=== PATIENT | male | born 1955 | race Caucasian/White ===

== ENCOUNTER 2020-09-03 16:56 | Observation (INO) ==
[2020-09-03] MEDS ORDERED: Acetaminophen 325 MG TABLET PO PRN (20:56)
[2020-09-03] MEDS ORDERED: Ondansetron 4 MG/2 ML VIAL IVP PRN (20:56)
[2020-09-03] MEDS ORDERED: Naloxone 0.4 MG/ML INJ IVP PRN (20:56)
[2020-09-03] MEDS ORDERED: D5% in Water 1,000 ML IVC PRN (21:00)
[2020-09-03] MEDS ORDERED: Dextrose Gel 15 GM/37.5 ML TUBE PO PRN ×2 (21:00)
[2020-09-03] MEDS ORDERED: *HR* Dextrose 50 % in Water (Vial) 50 ML VIAL IVP PRN (21:00)
[2020-09-03] MEDS ORDERED: 0.9 % Sodium Chloride 1,000 ML IVC SCH (21:45)
[2020-09-03 22:18] LABS: Hematocrit 44.6 % (37.5-50.1); Hemoglobin 14.4 g/dL (12.9-16.9); Mean Corpuscular HGB Conc 32.3 g/dL (31.6-35.5); Mean Corpuscular Hemoglobin 27.5 pg (28.0-33.3); Mean Corpuscular Volume 85.3 fL (83.0-100.0); Mean Platelet Volume 9.4 fL (9.4-12.4); Platelet Count 292 K/mcL (140-400); Red Blood Count 5.23 M/mcL (4.19-5.50); Red Cell Distribution Width 13.6 % (11.5-14.5); White Blood Count 8.5 K/mcL (4.3-11.1)
[2020-09-03] MEDS: *HR* Heparin 5,000 UNIT/ML VIAL SQ SCH (22:20)
[2020-09-03] MEDS: cefTRIAXone 2,000 MG in Water for inj. (sterile) 20 ML IVP SCH (22:21)
[2020-09-03] MEDS: metroNIDAZOLE 500 MG TABLET PO SCH (22:22)
[2020-09-03 23:03] LABS: Alanine Aminotransferase 693 Units/L (7-52); Albumin 3.8 g/dL (3.5-5.7); Albumin/Globulin Ratio 1.2 (1.1-2.2); Alkaline Phosphatase 169 Units/L (34-104); Aspartate Amino Transferase 491 Units/L (13-39); BUN/Creatinine Ratio 19 (6-26); Bilirubin,Direct 1.4 mg/dL (0.0-0.2); Bilirubin,Indirect 1.2 mg/dL (0.0-1.0); Bilirubin,Total 2.6 mg/dL (0.3-1.0); Blood Urea Nitrogen 15 mg/dL (8-23); Calcium 8.8 mg/dL (8.6-10.3); Carbon Dioxide 26 mEq/L (23-29); Chloride 103 mEq/L (98-107); Globulin 3.2 g/dL (2.4-3.5); Glucose 113 mg/dL (70-105); Osmolality,Calculated 288 (280-300); Potassium 3.8 mEq/L (3.5-5.1); Sodium 138 mEq/L (136-145); eGFR For African Americans > 60 (> 60); eGFR For Non-African Americans > 60 (> 60)
[2020-09-04] MEDS: Insulin LISPRO 300 UNITS/3 ML VIAL SQ SCH ×2 (00:10→05:58)
[2020-09-04] MEDS: *HR* Heparin 5,000 UNIT/ML VIAL SQ SCH ×2 (04:52→19:23)
[2020-09-04 06:25] LABS: Hematocrit 45.1 % (37.5-50.1); Hemoglobin 14.5 g/dL (12.9-16.9); Mean Corpuscular HGB Conc 32.2 g/dL (31.6-35.5); Mean Corpuscular Hemoglobin 28.1 pg (28.0-33.3); Mean Corpuscular Volume 87.4 fL (83.0-100.0); Mean Platelet Volume 9.7 fL (9.4-12.4); Platelet Count 273 K/mcL (140-400); Red Blood Count 5.16 M/mcL (4.19-5.50); Red Cell Distribution Width 13.5 % (11.5-14.5); White Blood Count 7.8 K/mcL (4.3-11.1)
[2020-09-04 06:29] LABS: INR 1.1; Prothrombin Time 13.1 Seconds (9.4-12.1)
[2020-09-04 07:01] LABS: Alanine Aminotransferase 557 Units/L (7-52); Albumin 3.6 g/dL (3.5-5.7); Albumin/Globulin Ratio 1.2 (1.1-2.2); Alkaline Phosphatase 156 Units/L (34-104); Aspartate Amino Transferase 320 Units/L (13-39); BUN/Creatinine Ratio 19 (6-26); Bilirubin,Direct 1.5 mg/dL (0.0-0.2); Bilirubin,Indirect 0.9 mg/dL (0.0-1.0); Bilirubin,Total 2.4 mg/dL (0.3-1.0); Blood Urea Nitrogen 15 mg/dL (8-23); Calcium 8.9 mg/dL (8.6-10.3); Carbon Dioxide 26 mEq/L (23-29); Chloride 104 mEq/L (98-107); Glucose 114 mg/dL (70-105); Magnesium 2.1 mg/dL (1.6-2.6); Osmolality,Calculated 292 (280-300); Phosphorous 4.1 mg/dL (2.7-4.5); Potassium 3.8 mEq/L (3.5-5.1); Sodium 140 mEq/L (136-145); Total Protein 6.6 g/dL (6.4-8.9); eGFR For African Americans > 60 (> 60); eGFR For Non-African Americans > 60 (> 60)
[2020-09-04] MEDS: metroNIDAZOLE 500 MG TABLET PO SCH ×3 (08:24→21:00)
[2020-09-04] MEDS ORDERED: Aspirin 81 MG TAB.CHEW PO SCH (09:00)
[2020-09-04 10:12] LABS: Estimated Average Glucose 148 mg/dl
[2020-09-04] MEDS ORDERED: Lidocaine -MPF 4% 5 ML AMPUL ONE (12:05)
[2020-09-04] MEDS ORDERED: *HR* Propofol 200 MG/20 ML VIAL IVP ONE (12:06)
[2020-09-04] MEDS ORDERED: Lidocaine -MPF 2% 2 ML VIAL ONE (12:07)
[2020-09-04] MEDS ORDERED: *HR* Rocuronium Bromide 50 MG/5 ML VIAL ONE (12:07)
[2020-09-04] MEDS ORDERED: Ondansetron 4 MG/2 ML VIAL ONE (12:07)
[2020-09-04] MEDS ORDERED: Dexamethasone 4 MG/ML VIAL ONE (12:07)
[2020-09-04] MEDS ORDERED: *HR* FentaNYL (PF) 100 MCG/2 ML VIAL ONE (12:07)
[2020-09-04] MEDS ORDERED: *HR* Succinylcholine 200 MG/10 ML VIAL IVP ONE (12:07)
[2020-09-04] MEDS ORDERED: Ondansetron 4 MG/2 ML VIAL IVP PRN (14:04)
[2020-09-04] MEDS ORDERED: *HR* FentaNYL (PF) 100 MCG/2 ML VIAL IVP PRN (14:04)
[2020-09-04] MEDS ORDERED: Promethazine 6.25 MG in Water for inj. (sterile) 20 ML IVPB PRN (14:04)
[2020-09-04] MEDS ORDERED: Albuterol 2.5 MG/3 ML NEBULIZER IH PRN (14:04)
[2020-09-04] MEDS ORDERED: *HR* OxyCODONE Immed Rel 5 MG TABLET PO PRN (14:04)
[2020-09-04] MEDS ORDERED: *HR* PHENYLEPHRINE 1,000 MCG/10 ML SYRINGE IVP ONE (14:15)
[2020-09-04] MEDS ORDERED: Indomethacin 50 MG SUPP.RECT RC ONE (14:19)
[2020-09-04] MEDS ORDERED: EPHEDrine 50 MG/ML VIAL ONE (14:29)
[2020-09-04] MEDS ORDERED: *HR* Dextrose 50 % in Water (Vial) 50 ML VIAL IVP PRN (15:55)
[2020-09-04] MEDS ORDERED: D5% in Water 1,000 ML IVC PRN (15:55)
[2020-09-04] MEDS ORDERED: Dextrose Gel 15 GM/37.5 ML TUBE PO PRN ×2 (15:55)
[2020-09-04] MEDS: *HR* Metoprolol 5 MG/5 ML VIAL IVP PRN ×2 (16:13→16:32)
[2020-09-04] MEDS ORDERED: Insulin LISPRO 300 UNITS/3 ML VIAL SQ SCH ×2 (16:30→21:00)
[2020-09-04] MEDS ORDERED: Ringers Solution, Lactated 1,000 ML ONE (16:54)
[2020-09-04] MEDS: cefTRIAXone 2,000 MG in Water for inj. (sterile) 20 ML IVP SCH (21:00)
[2020-09-05] MEDS: *HR* Heparin 5,000 UNIT/ML VIAL SQ SCH (05:00)
[2020-09-05] MEDS ORDERED: *HR* Rocuronium Bromide 50 MG/5 ML VIAL ONE (07:21)
[2020-09-05] MEDS ORDERED: *HR* Propofol 200 MG/20 ML VIAL IVP ONE (07:21)
[2020-09-05] MEDS ORDERED: Dexamethasone 4 MG/ML VIAL ONE (07:21)
[2020-09-05] MEDS ORDERED: Lidocaine -MPF 4% 5 ML AMPUL ONE (07:21)
[2020-09-05] MEDS ORDERED: Lidocaine -MPF 2% 2 ML VIAL ONE (07:21)
[2020-09-05] MEDS ORDERED: *HR* FentaNYL (PF) 100 MCG/2 ML VIAL ONE (07:21)
[2020-09-05] MEDS ORDERED: Ondansetron 4 MG/2 ML VIAL ONE (07:21)
[2020-09-05] MEDS ORDERED: *HR* Succinylcholine 200 MG/10 ML VIAL IVP ONE (07:47)
[2020-09-05] MEDS ORDERED: *HR* PHENYLEPHRINE 1,000 MCG/10 ML SYRINGE IVP ONE (08:01)
[2020-09-05 09:43] VITALS: BP 146/76
[2020-09-05] MEDS ORDERED: *HR* Dextrose 50 % in Water (Vial) 50 ML VIAL IVP PRN (10:12)
[2020-09-05] MEDS ORDERED: Ondansetron 4 MG/2 ML VIAL IVP PRN (10:12)
[2020-09-05] MEDS ORDERED: *HR* OxyCODONE/APAP 5/325 TABLET PO PRN (10:12)
[2020-09-05] MEDS ORDERED: Naloxone 0.4 MG/ML INJ IVP PRN (10:12)
[2020-09-05] MEDS ORDERED: D5% in Water 1,000 ML IVC PRN (10:12)
[2020-09-05] MEDS ORDERED: Dextrose Gel 15 GM/37.5 ML TUBE PO PRN ×2 (10:12)
[2020-09-05] MEDS ORDERED: metroNIDAZOLE 500 MG TABLET PO SCH ×2 (10:30)
[2020-09-05] MEDS ORDERED: Insulin LISPRO 300 UNITS/3 ML VIAL SQ SCH ×2 (11:30→21:00)
[2020-09-05] MEDS ORDERED: *HR* Heparin 5,000 UNIT/ML VIAL SQ SCH (18:00)
[2020-09-05] MEDS ORDERED: cefTRIAXone 2,000 MG in Water for inj. (sterile) 20 ML IVP SCH (22:00)
== END 2020-09-05 14:25 | disposition home or self-care (01) ==
LOC: 3NENU
PROVIDERS: ADMIT Internal Medicine; ATTEND Internal Medicine